=== PATIENT | female | born 1965 | race Caucasian/White ===

== ENCOUNTER 2024-03-19 02:41 | Emergency (ER) | payer MEDICARE ==
[~2024-03-19] VITALS: Ht 160 cm; Wt 73.9 kg
[2024-03-19] MEDS ORDERED: SUMA25 PO (02:57)
[2024-03-19] MEDS ORDERED: LEVOTHYROXINE112 M19 PO (02:58)
[2024-03-19] MEDS ORDERED: LAMO25 (03:01)
[2024-03-19] MEDS ORDERED: Ondansetron HCl 2 MG / ML 2ML Vial IV ONE (03:45)
[2024-03-19] MEDS ORDERED: DiphenhydrAMINE HCl 50 MG/ML 1ML Vial IV ONE (03:45)
[2024-03-19] MEDS ORDERED: Ketorolac Tromethamine 30mg Vial IV ONE (03:45)
== END 2024-03-19 04:18 | disposition home or self-care (01) ==
LOC: ER 02:41
DX: G43.909 Migraine, unspecified, not intractable, without status migrainosus (principal); Z88.8 Allergy status to other drugs, medicaments and biological substances; Z79.899 Other long term (current) drug therapy
CPT/HCPCS: 96374; 96375; 99283-25; J1200; J1885; J2405